=== PATIENT | female | born 1950 | race African-American/Black ===

== ENCOUNTER 2023-11-17 10:46 | Emergency (ER) | payer BC ==
[~2023-11-17] VITALS: Ht 160 cm; Wt 102.5 kg
[2023-11-17 11:08] VITALS: BP_SYST 147; PULSE 61; RESP 17; TEMP 97.2; O2SAT 96
[2023-11-17] MEDS: KETOROLAC TROMETHAMINE 30 MG VIAL IM ONE (11:36)
[2023-11-17] MEDS: ACETAMINOPHEN 500 MG TABLET PO ONE (11:59)
[2023-11-17 13:30] VITALS: BP_SYST 156; PULSE 54; TEMP 97.2; O2SAT 95
== END 2023-11-17 13:30 | disposition home or self-care (01) ==
LOC: SED 10:46
DX: M79.671 Pain in right foot (principal); E13.40 Other specified diabetes mellitus with diabetic neuropathy, unspecified; I10 Essential (primary) hypertension; E78.5 Hyperlipidemia, unspecified; Z90.49 Acquired absence of other specified parts of digestive tract; Z88.0 Allergy status to penicillin; Z88.8 Allergy status to other drugs, medicaments and biological substances
CPT/HCPCS: 99285; 93971; 96372; J1885